=== PATIENT | male | born 1940 | race Caucasian/White ===

== ENCOUNTER → 2017-01-11 | Outpatient (CLI) | payer MEDICARE, OTHER ==
[~2017-01-11] MED LIST: ACET325T51 PO; ALPR0.5T8 PO; CALC-709 PO; CYCL30DR BOTH EYES; DILT120C47 PO; DOXA2TAB PO; FINA5TAB42 PO; FLEC100T21 PO; FLUO20CA30 PO; HYDR-4072 PO; METH10CP PO; PROP60TA PO; SIMV20TA2 PO; SULF1TAB3 PO; TRAM50TA4 PO
[2017-01-11 10:02] LABS: BASOPHILS % (AUTO) 0.2 % (0-2); EOSINOPHILS # (AUTO) 0.2 T/MM3 (0-0.5); EOSINOPHILS % (AUTO) 2.5 % (0-4); HCT - HEMATOCRIT 42.7 % (41-53); HGB - HEMOGLOBIN 14.8 GM/DL (13.5-17.5); IMMATURE GRANULOCYTE # (AUTO) 0.02 T/MM3 (0.00-0.03); IMMATURE GRANULOCYTE % (AUTO) 0.2 % (0.0-0.5); LYMPHOCYTES # (AUTO) 1.5 T/MM3 (1-4.8); LYMPHOCYTES % (AUTO) 17.9 % (23-45); MEAN CORPUSCULAR HGB 31.5 UUG (26-34); MEAN CORPUSCULAR HGB CONC(MCHC 34.7 GM/DL (31-37); MEAN CORPUSCULAR VOLUME 90.9 UM3 (80-100); MEAN PLATELET VOLUME 10.1 UM3 (9.4-12.4); MONOCYTES # (AUTO) 0.4 T/MM3 (0-0.8); MONOCYTES % (AUTO) 5.3 % (0-9.0); NEUTROPHILS #(AUTO)-ABSOLUTE 6.1 T/MM3 (1.8-7.7); NEUTROPHILS % (AUTO) 73.9 % (33-66); WBC - WHITE BLOOD COUNT 8.3 T/MM3 (4.5-11.0)
== END ==
LOC: LAB 09:36
PROVIDERS: ATTEND Internal Medicine Medical Oncology
DX: D69.6 Thrombocytopenia, unspecified (principal)
CPT/HCPCS: 36415; 85025; 86038

== ENCOUNTER → 2017-01-18 | Outpatient (CLI) | payer MEDICARE, OTHER ==
--- NOTE | 2017-01-18 11:46 | DI ---
Indication: ITS.REASON: D69.6 Thrombocytopenia, unspecified PROCEDURE: US ABDOMEN LIMITED: Encounter: Initial Comparison: None Technique: Grayscale and color Doppler sonographic imaging of the left upper quadrant of the abdomen was performed. Findings: The spleen is normal in size measuring 12 cm in maximal dimension. No focal splenic lesions identified. Normal vascularity present. Impression: No sonographic evidence of splenomegaly. .
== END ==
LOC: IMA 10:24
PROVIDERS: ATTEND Internal Medicine Medical Oncology
DX: D69.6 Thrombocytopenia, unspecified (principal)